=== PATIENT | female | born 1935 | race Two or more races ===

== ENCOUNTER 2019-08-12 01:53 | Inpatient (IN) | payer MEDICAID ==
[~2019-08-12] VITALS: Ht 157.5 cm; Wt 67.6 kg
[2019-08-12] MEDS ORDERED: IV NS 0.9% 1,000 ML BAG IV ONE ×2 (02:00→02:30)
--- NOTE | 2019-08-12 02:10 | NUR ---
[id number] FROM [facility] FOR ALOC SINCE 129, GIVEN GLUCAGON D10, 200CC NS SENIOR PROGRAMMER. PT NON-VERBAL, VENT DEPENDENT, TRACH IN PLACE, GT AND F/C IN PLACE. W/ A 24G IV ON R HAND WHICH IS INFILTRATED. PT WAS PLACED ON A MONITOR ,
[2019-08-12 02:34] LABS: BASOPHILS % (AUTO) 0.2 % (0.0-2.0); HEMATOCRIT 26 % (33-45); HEMOGLOBIN 8.6 g/dL (11.5-14.8); LYMPHOCYTES # (AUTO) 0.6 /CMM (0.8-4.8); LYMPHOCYTES % (AUTO) 6.3 % (20.0-44.0); MEAN CORPUSCULAR HGB CONC 33 g/dl (31.0-36.0); MEAN CORPUSCULAR VOLUME 89 fL (82-100); MONOCYTES # (AUTO) 0.6 /CMM (0.1-1.30); MONOCYTES % (AUTO) 6.3 % (2.0-12.0); NEUTROPHILS # (AUTO) 8.8 /CMM (1.8-8.9); NEUTROPHILS % (AUTO) 87.2 % (43.0-81.0); PLATELET COUNT (AUTO) 430 /CMM (150-450); RED BLOOD CELL COUNT(AUTO) 2.94 MIL/uL (4.0-5.2)
[2019-08-12 02:45] LABS: CALCIUM, SERUM 8.3 mg/dL (8.5-10.1); CREATININE 0.8 mg/dL (0.6-1.3); POTASSIUM 3.6 mmol/L (3.5-5.1)
[2019-08-12 02:51] LABS: BILIRUBIN,DIRECT 0.1 mg/dL (0.0-0.2); BILIRUBIN,TOTAL 0.2 mg/dL (0.2-1.0); TOTAL PROTEIN, SERUM 4.4 g/dL (6.4-8.2)
[2019-08-12 02:59] LABS: ALBUMIN 1.2 g/dL (3.4-5.0)
[2019-08-12 03:28] LABS: APPEARANCE,URINE SL CLOUDY (CLEAR); BILIRUBIN,URINE NEGATIVE (NEGATIVE); BLOOD, URINE SMALL Ery/uL (NEGATIVE); COLOR,URINE YELLOW (YELLOW); KETONES,URINE NEGATIVE (NEGATIVE); LEUKOCYTE ESTERASE ,URINE SMALL (NEGATIVE); NITRITE, URINE NEGATIVE (NEGATIVE); PROTEIN,URINE NEGATIVE (NEGATIVE); UGLUCOSE NEGATIVE (NEGATIVE); UROBILINOGEN,URINE 0.2 EU/dL (0.2)
[2019-08-12 03:40] LABS: BACTERIA,URINE None seen /HPF (None Seen); SQUAMOUS EPITHELIAL CELL,UR Few /HPF (None Seen)
[2019-08-12] MEDS ORDERED: IV 1/2NS 1000 ML 1,000 ML IV PRN (03:48)
--- NOTE | 2019-08-12 03:59 | NUR ---
BP: 117/58 PT HAS RECEIVED 2100ML OF NS SO FAR. MADE AWARE. PER MD TO HOLD ON TO THE THIRD BAG OF 1 LIT NS AND MONITOR PT CLOSELY.
[2019-08-12] MEDS ORDERED: HYDROCODONE/APAP 5/325MG 1 EACH TABLET PO PRN (04:00)
[2019-08-12] MEDS ORDERED: ZOLPIDEM TARTRATE 5 MG TABLET PO PRN (04:00)
[2019-08-12] MEDS ORDERED: MAGNESIUM HYDROXIDE 30 ML UDC PO PRN (04:00)
[2019-08-12] MEDS ORDERED: ACETAMINOPHEN 325 MG TABLET PO PRN (04:00)
[2019-08-12] MEDS ORDERED: ONDANSETRON HCL/PF 4 MG/2 ML VIAL IVP PRN (04:00)
[2019-08-12] MEDS ORDERED: MAG HYDROX/AL HYDROX/SIMETH 30 ML UDC PO PRN (04:00)
[2019-08-12] MEDS ORDERED: Z GUARD REMEDY 2 OZ OINT TP PRN (04:00)
--- NOTE | 2019-08-12 04:06 | NUR ---
pt will go to room 101
[2019-08-12] MEDS ORDERED: PRED5TAB48 PO (04:52)
[2019-08-12] MEDS ORDERED: CHOL200026 PO (04:52)
[2019-08-12] MEDS ORDERED: MODA100T14 PO (04:52)
[2019-08-12] MEDS ORDERED: INSU100V7 SQ (04:52)
[2019-08-12] MEDS ORDERED: ATOR80TA PO (04:52)
[2019-08-12] MEDS ORDERED: FERR325T23 PO (04:52)
[2019-08-12] MEDS ORDERED: LISI40TA4 PO (04:52)
[2019-08-12] MEDS ORDERED: SUCR1TAB PO (04:52)
[2019-08-12] MEDS ORDERED: METO50TA16 PO (04:52)
[2019-08-12] MEDS ORDERED: DILT180C66 PO (04:52)
[2019-08-12] MEDS ORDERED: PANT40TA4 PO (04:52)
[2019-08-12] MEDS ORDERED: MULT1TAB73 PO (04:52)
--- NOTE | 2019-08-12 04:59 | NUR ---
report given to harriet on first floor
--- NOTE | 2019-08-12 05:26 | NUR ---
pt was cleaned and dried.
[2019-08-12 05:30] VITALS: BP 152/71
--- NOTE | 2019-08-12 05:30 | NUR ---
CLUB ROOM ATTENDANT NOTE PATIENT TRANSFERRED FROM ER IN [facility]. PATIENT OBTUNDED AND NON VERBAL. PATIENT DOES NOT OPEN HER EYES. PATIENT TRANSFERRED TO VENT SUCCESSFULLY TOELRATING VENT SETTINGS. BREATHING EVEN AND UNLABORED. EQUAL CHEST RISE AND FALL. NO S/S OF RESP DISTRESS. PATIENT PLACED ON TELE MONITOR HR NOTED TO BE CONTROLLED AFIB HR IN THE 80'S. PATIENT'S EXTREMITIES SEVERELY EDEMATOUS/ PITTING +4 WITH WEEPING IN THE ARMS. IV IN RFA 20 G PATENT, BUT NO VENOUS RETURN AND 20G IN L HAND PATENT WITH NO VENOUS RETURN. NO S/S OF INFILTRATION OR INFECTION. SKIN CHECK GIVEN. INSTRUCTIONS WADER BOOT TOP ASSEMBLER LIGHT USE GIVEN, CALL LIGHT WITHIN REACH. WOUND CONSULT PLACED FOR WOUNDS. CALLED [facility] TO CONFIRM CODE STATUS. PATIENT IS FULL CODE AND HAS NO ADVACNED DIRECTIVES. SIDE RAILS UP X 2 BED IN SEMI FOWLERS. RN WILL CONTINUE TO MONITOR. Addendum: 08/12/19 at 0652 by JOE GONZALEZ RN PATIENT HAS WERNER CATH DRAINING TO GRAVITY WITH STRAW/ LIGHT YELLOW URINE AND MINOR WHITE SEDIMENT NOTED
--- NOTE | 2019-08-12 05:30 | NUR ---
PT TRANSFERRED TO [facility] FROM ED, PT STABLE, VENT PLUG IN RED OUTLET, AMBU BAG AT BEDSIDE, NO SOB NOTED Addendum: 08/12/19 at 0551 by RUSTY GAXIOLA RT Amended: Links added.
--- NOTE | 2019-08-12 05:40 | NUR ---
pt was transferred to 101 under acls
[2019-08-12] MEDS: PANTOPRAZOLE 40 MG TABLET.DR PO SCH (07:30)
--- NOTE | 2019-08-12 07:40 | NUR ---
ELEMENTARY SPECIAL EDUCATION TEACHER NOTE RECEIVED PATIENT IN BED , OBTUNDED ,NOT RESPONSE TO VERBAL COMMAND BUT RESPOCE TO TACTILY STIMULI. WITH TRACH TO VENT SETTING ORDERED, AMBU BAG AT HOB AT ALL TIME, ON TELE MONITOR SR HR 90 WITH PAC , WITH WERNER CAT TO GRAVITY WITH YELLOW COLOR URINE ON NPO ASCORDERED ON IVF ORDERED HL ON LTFA INTACT WITH EDEMA .PLCED ON PILLOW ,
--- NOTE | 2019-08-12 07:59 | NUR ---
DR MORGAN GAS PLANT OPERATOR AT BEDSIDE AWARE THAT TROP NUMBER ONE 0.130 , ON IVF ORDERED AWARE THAT BOTH UPPER AND LOWER EXTREMITIES WITH EDEMA, AWARE THAT PROCALCITONIN 1.83, WILL MONITOR BED IN LOWEST AND LOCKED POSITION , CALL LIGHT WITHIN REACH , PLAN OR CARE DISCUSSED WITH PATIENT
[2019-08-12 08:00] VITALS: BP 169/82
--- NOTE | 2019-08-12 08:29 | NUR ---
TECHNICAL INFORMATION SPECIALIST NOTE 2DECHO DONE ORDERED, WILL MONITOR
[2019-08-12] MEDS: ASPIRIN 81 MG TAB.CHEW PO SCH (10:21)
--- NOTE | 2019-08-12 10:28 | NUR ---
PROJECT MANAGER RETAIL NOTE STOOL FOR C DIF COLLECTED PER HOSPITAL PROTOCOL
[2019-08-12 12:00] VITALS: BP 139/74
[2019-08-12] MEDS ORDERED: DEXTROSE 50%-WATER 50 ML DISP.SYRIN IVP STA ×2 (13:17→14:12)
[2019-08-12] MEDS ORDERED: DEXTROSE 50%-WATER 50 ML DISP.SYRIN IV PRN (13:30)
[2019-08-12] MEDS ORDERED: INSULIN REGULAR, HUMAN 100 UNIT/ML 3 ML VIAL SQ PRN (13:30)
--- NOTE | 2019-08-12 13:30 | NUR ---
PROSTHETIC DENTIST NOTE CHECKED BLOOD SUGAR RESULT BELOW 10 HENNY WEST GLOBAL DIRECTOR AIR AND CLIMATE CHANGE NOTIFIED WITH ORDER TO GIVE D50% IV AND RANDOM GLUCOSE STAT, ORDER CARRIED OUT
[2019-08-12] MEDS: GLUCERNA 1.2 1,000 ML BOTTLE NG PRN (13:49)
--- NOTE | 2019-08-12 13:57 | NUR ---
EMERGENCY MEDICAL TECHNICIAN NOTE REPORTED TO HENNY WEST DNP THAT BOTH ARMS AND LEGS SWELLING OK TO PLACE MID LINE ORDER CARRIED OUT
--- NOTE | 2019-08-12 14:20 | NUR ---
OSWALDO WEST NOTE BLOOD SUGAR CHECKED 19 MG\DL HENNY WEST CHAIR SPRING ASSEMBLER NOTIFIED STATED CONT D10% INFUSING AND START G TUBE FEEDING , ORDER CARRIED OUT Addendum: 08/12/19 at 1656 by MARY LAWRENCE RN ANOTHER D50% ORDERED WILL BE GIVEN ORDERED
[2019-08-12] MEDS: CHOLECALCIFEROL 1,000 UNIT TABLET (VIT D3) PO SCH (14:50)
[2019-08-12] MEDS: Sodium Chloride 77 MEQ in IV 10% DEXTROSE 1,000 ML IV PRN (14:50)
--- NOTE | 2019-08-12 15:07 | NUR ---
RED CAP NOTE DR CHAIREZ NOTIFIED ABOUT BLOOD CLOT ON LT LEG WITH ORDER CT HEAD STAT ORDERED CARRIED OUT DR CHAIREZ AWARE THAT HR [address] ST
--- NOTE | 2019-08-12 15:10 | NUR ---
TRANSPORTATION WORKER NOTE BLOOD SUGAR 81 MG\ DL WILL CONT TO INFUSE D10% IV ORDERED,PER LAB BLOOD SUGAR 37 MG DL ,HENNY WEST MILL HAND AWARE WITH CONT G TUBE FEEDING ANG AND IVF WITH D10% INFUSION
--- NOTE | 2019-08-12 15:45 | NUR ---
PASTORAL ASSISTANT NOTE SPOKE WITH ALYSSA NOTIFIED THAT HR ON TELE MONITOR ST WITH PAC 145 -156 OK TO CONT LOPRESSOR ORDERED VIA G TUBE , WILL F\U
--- NOTE | 2019-08-12 15:45 | NUR ---
director telecommunications note \ taken to ct head as ordered
[2019-08-12 16:00] VITALS: BP_SYST 143; BP_SYST 147; BP_DIAS 83; BP_DIAS 97
[2019-08-12] MEDS: predniSONE 5 MG TABLET PO SCH (16:13)
[2019-08-12] MEDS: SUCRALFATE 1 G TABLET PO SCH ×2 (16:13→21:11)
[2019-08-12] MEDS: METOPROLOL TARTRATE 50 MG TABLET PO SCH (16:14)
--- NOTE | 2019-08-12 16:27 | NUR ---
RN SURGICAL PCU NOTE DR GIVENS NOTIFIED CT HEAD WITH ORDER VASCULAR CONSULT WITH DR CARPIO CALLED OFFICE SPOKE WITH PETER CARVER F\U
--- NOTE | 2019-08-12 16:56 | NUR ---
BUCKLE STRAP PUNCHER NOTE DR SLATER VASCULAR CALLED BACK STATED WILL COME SOON TO CHECK IT OUT
--- NOTE | 2019-08-12 17:00 | NUR ---
COPYRIGHT MANAGER NOTE MID LINE INSERTED ORDERED KEEP CLEAN DRY ,WILL MONITOR
[2019-08-12] MEDS: BLOOD SUGAR DIAGNOSTIC 1 EACH STRIP IN SCH ×2 (17:38→21:47)
[2019-08-12] MEDS: DILTIAZEM HCL 30 MG TABLET PO SCH (17:42)
--- NOTE | 2019-08-12 18:13 | NUR ---
HR INTERN NOTE PER DR SLATER VASCULAR CONSENT FOR PLACEMENT IVC FILTER OBTAINED ,SON SIGNED
--- NOTE | 2019-08-12 18:47 | NUR ---
SALES PROJECT ENGINEER NOTE KUV DONE ORDERED AWAITING FOR RESULT
--- NOTE | 2019-08-12 19:25 | NUR ---
TELE/RN NOTES PATIENT IN BED, AWAKE OPEN EYES, NON-VERBAL. TRACH TO VENT WITH PRESCRIBED SETTINGS, IN NO ACUTE DISTRESS, BREATHING EVEN AND UNLABORED. NO SOB NOTED, TRACH INTACT, PATENT, IN MIDLINE, AMBU BAG AT BED SIDE. NO S/S OF PAIN, NO FACIAL GRIMACING NOTED, ON TELE MONITORING WITH SINUS RHYTHM. WERNER CATH IN PLACE, PATENT, DRAINING WELL WITH CLEAR YELLOW URINE. G-TUBE PATENT CONNECTED TO FEEDING ORDERED. CLEAN AND DRY. SAFETY MAINTAINED, BED AT THE LOWEST LOCKED POSITION, IV SITES WITH NO S/S OF INFECTION, INFILTRATION, RUNNING WITH FLUIDS ORDERED. CALL LIGHT WITHIN REACH. FAMILY AT BED SIDE. WILL CONTINUE TO MONITOR PER PLAN OF CARE.
[2019-08-12 20:00] VITALS: BP 135/72
--- NOTE | 2019-08-12 20:04 | NUR ---
CALLED DR. HAMMOND TO RELAY KUB RESULTS, WAITING FOR CALL BACK
--- NOTE | 2019-08-12 21:15 | NUR ---
PT RCVD TRACH'D ON MECHANICAL VENT WITH CHARTED SETTINGS. SX DONE. PT TRACH IS PATENT AND SECURE. VENT ALARMS APPEAR TO BE FUNCTIONING PROPERLY. VENT PLUGGED INTO RED OUTLET. AMBU BAG AT BEDSIDE. NO SOB NOTED.
--- NOTE | 2019-08-12 21:17 | NUR ---
PT RCVD CESAR'D ON MECHANICAL VENT WITH CHARTED SETTINGS. SX DONE. PT TRACH IS PATENT AND SECURE. VENT ALARMS APPEAR TO BE FUNCTIONING PROPERLY. VENT PLUGGED INTO RED OUTLET. AMBU BAG AT BEDSIDE. NO SOB NOTED. Addendum: 08/12/19 at 2117 by DILLNO SUAZO RT Amended: Links added.
[2019-08-13] VITALS: BP 142/78
[2019-08-13] MEDS: DILTIAZEM HCL 30 MG TABLET PO SCH ×4 (00:30→17:19)
[2019-08-13 03:35] LABS: BASOPHILS % (AUTO) 0.4 % (0.0-2.0); EOSINOPHILS % (AUTO) 0.2 % (0.0-6.0); HEMATOCRIT 29 % (33-45); HEMOGLOBIN 9.5 g/dL (11.5-14.8); LYMPHOCYTES % (AUTO) 10.2 % (20.0-44.0); MEAN CORPUSCULAR HGB CONC 33 g/dl (31.0-36.0); MEAN CORPUSCULAR VOLUME 90 fL (82-100); MONOCYTES # (AUTO) 0.8 /CMM (0.1-1.30); MONOCYTES % (AUTO) 8.6 % (2.0-12.0); NEUTROPHILS # (AUTO) 7.6 /CMM (1.8-8.9); NEUTROPHILS % (AUTO) 80.6 % (43.0-81.0); PLATELET COUNT (AUTO) 456 /CMM (150-450); RED BLOOD CELL COUNT(AUTO) 3.18 MIL/uL (4.0-5.2); WHITE BLOOD COUNT (AUTO) 9.5 K/uL (4.3-11.0)
[2019-08-13 03:48] LABS: CREATININE 0.8 mg/dL (0.6-1.3); MAGNESIUM 1.7 mg/dL (1.8-2.4); PHOSPHORUS 2.9 mg/dL (2.5-4.9); POTASSIUM 3.8 mmol/L (3.5-5.1)
[2019-08-13 04:00] VITALS: BP 152/76
[2019-08-13] MEDS ORDERED: DEXTROSE 50%-WATER 50 ML DISP.SYRIN IV PRN (04:30)
[2019-08-13] MEDS: Sodium Chloride 77 MEQ in IV 10% DEXTROSE 1,000 ML IV PRN ×2 (04:47→21:50)
[2019-08-13] MEDS: INSULIN REGULAR, HUMAN 100 UNIT/ML 3 ML VIAL SQ PRN ×2 (06:01→11:04)
[2019-08-13] MEDS: BLOOD SUGAR DIAGNOSTIC 1 EACH STRIP IN SCH ×3 (06:12→17:29)
--- NOTE | 2019-08-13 06:54 | NUR ---
TELE/RN EXIT NOTES PATIENT IN BED, AWAKE OPEN EYES, NON-VERBAL. TRACH TO VENT WITH PRESCRIBED SETTINGS, IN NO ACUTE DISTRESS, BREATHING EVEN AND UNLABORED. NO SOB NOTED, TRACH INTACT, PATENT, IN MIDLINE, AMBU BAG AT BED SIDE. NO S/S OF PAIN, NO FACIAL GRIMACING NOTED, ON TELE MONITORING WITH SINUS RHYTHM/SINUS TACHY. WERNER CATH IN PLACE, PATENT, DRAINING WELL WITH CLEAR YELLOW URINE WITH OUTPUT 500 IN THIS SHIFT. PATIENT NPO OF THE IVC PROCEDURE TODAY. CLEAN AND DRY. SAFETY MAINTAINED, BED AT THE LOWEST LOCKED POSITION, IV SITES WITH NO S/S OF INFECTION, INFILTRATION, RUNNING WITH FLUIDS ORDERED. ALL DUE MEDS GIVEN ORDERED, TOLERATED WELL. PENDING WOUND CONSULT. CALL LIGHT WITHIN REACH. WILL ENDORSE TO AM SHIFT NURSE FOR JULIANA.
--- NOTE | 2019-08-13 07:20 | NUR ---
TELE/RN OPENING NOTES RECEIVED PATIENT IN BED RESTING COMFORTABLY. PATIENT ABLE TO RESPOND TO TACTILE STIMULI. NO PAIN OR ACUTE DISTRESS AT THIS TIME. RESPIRATION EVEN AND UNLABORED. SKIN IS DRY WARM TO TOUCH. PATIENT ABLE TO TOLERATED CURRENT VENT SETTINGS WELL. AMBU BAG AT BED SIDE. TELE MONITORING WITH SINUS RHYTHM. NOTED WITH WERNER CATH WELL AND IN PLACE, PATENT, DRAINING WELL WITH CLEAR YELLOW URINE. G-TUBE INTACT AND PATENT. IV SITES INTACT AND PATENT WITH NO S/S OF INFECTION, INFILTRATION, RUNNING WITH FLUIDS ORDERED. ALL NEEDS ANTICIPATED. CALL LIGHT WITHIN REACHED. BED LOCKED AND IN LOWEST POSITION. SAFETY MAINTAINED. WILL CONTINUE TO MONITOR CLOSELY.
[2019-08-13] MEDS: PANTOPRAZOLE 40 MG TABLET.DR PO SCH (07:32)
[2019-08-13 08:00] VITALS: BP 132/82
[2019-08-13] MEDS: MULTIVIT W/MINERALS 1 TAB TABLET PO SCH (08:38)
[2019-08-13] MEDS: ASPIRIN 81 MG TAB.CHEW PO SCH (08:38)
[2019-08-13] MEDS: METOPROLOL TARTRATE 50 MG TABLET PO SCH ×2 (08:38→17:19)
[2019-08-13] MEDS: SUCRALFATE 1 G TABLET PO SCH ×4 (08:38→21:43)
[2019-08-13] MEDS: CHOLECALCIFEROL 1,000 UNIT TABLET (VIT D3) PO SCH (08:39)
[2019-08-13] MEDS: FERROUS SULFATE (325 MG) 325 MG/TAB TABLET PO SCH (08:39)
[2019-08-13] MEDS: MODAFINIL 100 MG TABLET PO SCH (08:39)
[2019-08-13] MEDS: predniSONE 5 MG TABLET PO SCH ×2 (08:41→17:14)
--- NOTE | 2019-08-13 10:36 | NUR ---
WOUND CARE CONSULT: PT PRESENTS WITH NECROTIC WOUND TO RT UPPER ARM, DRY ESCHAR TO ABDOMEN, SACRAL SCARRING WITH LARGE SKIN TAG TO BUTTOCKS, DRY LESION TO LEFT SIDE OF FACE/CHEEK AND DISCOLORATION/SCARRING TO RT WITH DISCOLORATION vs POSSIBLE DRY WOUND TO LEFT LOWER LEG, PRESENT ON ADMISSION. RECOMMEND DPM CONSULT FOR LOWER EXTREMITIES AND SURGICAL CONSULT FOR RT ARM AND ABDOMEN. DR FOWLER NOTIFIED OF DPM CONSULT REQUEST AND DR ELSA JACKSON NOTIFIED OF SURGICAL CONSULT REQUEST. PT ON FIRST STEP [facility] MATTRESS. ALL SKIN PROTECTION AND WOUND CARE RECOMMENDATIONS DISCUSSED WITH NURSING STAFF. DEFER TO DPM FOR LOWER EXTREMITIES. WILL SEE PRN. CURRENT BEATRIZ SCORE IS 9. Addendum: 08/13/19 at 1041 by NEERAJ ALVARADO WNDNU Amended: Links added.
[2019-08-13 12:00] VITALS: BP 127/77
[2019-08-13] MEDS: Magnesium 1GM/D5W 100ML PREMIX 100 ML IV SCH ×2 (12:43→14:10)
--- NOTE | 2019-08-13 15:15 | NUR ---
TELE/RN NOTES NURSES FROM SURGERY CAME TO THE UNIT TO SENIOR GROUP MANAGER THE PATIENT. PATIENT LEFT THE UNIT IN STABLE CONDITION. AWAITING FOR THE PATIENTS RETURN FROM SURGERY.
[2019-08-13] MEDS: ACETYLCYSTEINE 10% SOLN 400 MG/4 ML VIAL NEB SCH ×2 (15:30→23:30)
[2019-08-13] MEDS ORDERED: LIDOCAINE HCL/PF 1% 30 ML SDV ONE (15:44)
[2019-08-13] MEDS ORDERED: IOHEXOL 240MG/ML 50 ML IV ONE (15:54)
[2019-08-13 16:00] VITALS: BP 145/84
--- NOTE | 2019-08-13 16:30 | NUR ---
TELE/RN NOTES PATIENT CAME BACK FROM SURGERY ACCOMPANIED BY SURGERY NURSE WITH ORDERS TO RESUME ALL MEDS/ORDERS, KEEP LEFT FOOT WARM AT ALL TIMES AND TO PUT BILATERAL HEEL PROTECTORS. ALL ORDERS NOTED AND CARRIED OUT. WILL CONTINUE TO MONITOR CLOSELY.
--- NOTE | 2019-08-13 18:45 | NUR ---
TELE/RN CLOSING NOTES PATIENT CONTINUES TO REMAIN IN STABLE CONDITION THROUGHOUT THE SHIFT. PROVIDED COMFORT AND SAFETY. CONTINUES ON TELE MONITORING WITH SINUS RHYTHM. PATIENT WAS ABLE TO TOLERATE SURGERY WELL. IVC FILTER WAS PLACED BY DR. HAMMOND. INCISION ON R GROIN WITH DRESSING, INTACT AND IN PLACE. NOTED WITH WERNER CATH WELL AND IN PLACE, PATENT, DRAINING WELL WITH CLEAR YELLOW URINE. G-TUBE INTACT AND PATENT. IV SITES INTACT AND PATENT WITH NO S/S OF INFECTION, INFILTRATION, RUNNING WITH FLUIDS ORDERED. ALL NEEDS ANTICIPATED. CALL LIGHT WITHIN REACHED. BED LOCKED AND IN LOWEST POSITION. SAFETY MAINTAINED. WILL CONTINUE TO MONITOR CLOSELY. ENDORSED TO PM NURSE FOR JULIANA.
--- NOTE | 2019-08-13 19:25 | NUR ---
TELE/RN NOTES PATIENT IN BED, RESTING COMFORTABLY, EYES CLOSE, RESPOND TO STIMULI, NON-VERBAL, TRACH TO VENT WITH PRESCRIBED SETTINGS, IN NO ACUTE DISTRESS, BREATHING EVEN AND UNLABORED. NO SOB NOTED, TRACH INTACT, PATENT, IN MIDLINE, AMBU BAG AT BED SIDE. NO S/S OF PAIN, NO FACIAL GRIMACING NOTED, ON TELE MONITORING WITH SINUS RHYTHM. WERNER CATH IN PLACE, PATENT, DRAINING WELL WITH CLEAR YELLOW URINE. G-TUBE PATENT CONNECTED TO FEEDING ORDERED. HOB ELEVATED. CLEAN AND DRY. PATIENT S/P PROCEDURE IVC PLACEMENT, LEFT LOWER EXTREMITY KEPT WARM, BILATERAL HEEL PROTECTOR IN PLACE. SAFETY MAINTAINED, BED AT THE LOWEST LOCKED POSITION, IV SITES WITH NO S/S OF INFECTION, INFILTRATION, RUNNING WITH FLUIDS ORDERED. CALL LIGHT WITHIN REACH. FAMILY AT BED SIDE. WILL CONTINUE TO MONITOR PER PLAN OF CARE.
--- NOTE | 2019-08-13 19:43 | NUR ---
RT NOTE PT RECEIVED TRACHED ON MECHANICAL VENTILATION. AMBU BAG/BACK UP TRACH @ BEDSIDE. SX DONE, TRACH SECURED AND PATENT. ALARMS ON AND AUDIBLE. NO SOB NOTED. CONT. PULSE OX CONNECTED. WILL CONTINUE TO MONITOR T/O SHIFT. Addendum: 08/13/19 at 1945 by DEB LOPEZ RT Amended: Links added.
[2019-08-13 20:00] VITALS: BP 126/64
[2019-08-14] VITALS: BP 142/80
[2019-08-14] MEDS: BLOOD SUGAR DIAGNOSTIC 1 EACH STRIP IN SCH ×4 (00:28→16:59)
[2019-08-14] MEDS: DILTIAZEM HCL 30 MG TABLET PO SCH ×4 (00:45→16:58)
[2019-08-14] MEDS: INSULIN REGULAR, HUMAN 100 UNIT/ML 3 ML VIAL SQ PRN ×4 (00:52→17:00)
[2019-08-14 04:00] VITALS: BP 150/91
--- NOTE | 2019-08-14 06:42 | NUR ---
TELE/RN EXIT NOTES PATIENT REMAINED IN BED, AWAKE OPEN EYES, NON-VERBAL. TRACH TO VENT WITH PRESCRIBED SETTINGS, IN NO ACUTE DISTRESS, BREATHING EVEN AND UNLABORED. NO SOB NOTED, TRACH INTACT, PATENT, IN MIDLINE, AMBU BAG AT BED SIDE. NO S/S OF PAIN, NO FACIAL GRIMACING NOTED, ON TELE MONITORING WITH SINUS RHYTHM/SINUS TACHY. WERNER CATH IN PLACE, PATENT, DRAINING WELL WITH CLEAR YELLOW URINE WITH OUTPUT 1050 IN THIS SHIFT. CLEAN AND DRY. SAFETY MAINTAINED, BED AT THE LOWEST LOCKED POSITION, IV SITES WITH NO S/S OF INFECTION, INFILTRATION, RUNNING WITH FLUIDS ORDERED. ALL DUE MEDS GIVEN ORDERED, TREATMENTS RENDERED. TOLERATED WELL. . CALL LIGHT WITHIN REACH. WILL ENDORSE TO AM SHIFT NURSE FOR JULIANA.
[2019-08-14 06:47] LABS: BASOPHILS % (AUTO) 0.2 % (0.0-2.0); HEMATOCRIT 30 % (33-45); HEMOGLOBIN 10.1 g/dL (11.5-14.8); LYMPHOCYTES # (AUTO) 1.1 /CMM (0.8-4.8); LYMPHOCYTES % (AUTO) 12.3 % (20.0-44.0); MEAN CORPUSCULAR HGB CONC 33 g/dl (31.0-36.0); MEAN CORPUSCULAR VOLUME 89 fL (82-100); MONOCYTES # (AUTO) 0.8 /CMM (0.1-1.30); MONOCYTES % (AUTO) 8.8 % (2.0-12.0); NEUTROPHILS # (AUTO) 7.3 /CMM (1.8-8.9); NEUTROPHILS % (AUTO) 78.7 % (43.0-81.0); PLATELET COUNT (AUTO) 518 /CMM (150-450); RED BLOOD CELL COUNT(AUTO) 3.43 MIL/uL (4.0-5.2); WHITE BLOOD COUNT (AUTO) 9.3 K/uL (4.3-11.0)
[2019-08-14 07:15] LABS: CALCIUM, SERUM 8.1 mg/dL (8.5-10.1); CREATININE 0.7 mg/dL (0.6-1.3); POTASSIUM 3.8 mmol/L (3.5-5.1)
[2019-08-14] MEDS: ACETYLCYSTEINE 10% SOLN 400 MG/4 ML VIAL NEB SCH ×3 (07:23→23:12)
--- NOTE | 2019-08-14 07:30 | NUR ---
TELE/RN OPENING NOTES RECEIVED PATIENT IN BED, RESTING COMFORTABLY. PATIENT ABLE TO RESPOND TO TACTILE STIMULI. NO FACIAL GRIMACING OR ACUTE DISTRESS AT THIS TIME. RESPIRATION EVEN AND UNLABORED. SKIN IS DRY WARM TO TOUCH. PATIENT ABLE TO TOLERATE VENT SETTING WELL. AMBU BAG AT BED SIDE. CONTINUES ON TELE MONITORING WITH SINUS RHYTHM. WERNER CATH IN PLACE, PATENT, DRAINING WELL WITH CLEAR YELLOW URINE. G-TUBE PATENT CONNECTED TO FEEDING ORDERED. HOB ELEVATED AT ALL TIMES. CLEAN AND DRY. PATIENT S/P PROCEDURE IVC PLACEMENT, LEFT LOWER EXTREMITY KEPT WARM, BILATERAL HEEL PROTECTOR IN PLACE. ALL NEEDS ANTICIPATED. CALL LIGHT WITHIN REACHED. BED LOCKED AND IN LOWEST POSITION. SAFETY MAINTAINED. WILL CONTINUE TO MONITOR CLOSELY.
[2019-08-14] MEDS: PANTOPRAZOLE 40 MG TABLET.DR PO SCH (07:46)
[2019-08-14 08:00] VITALS: BP_SYST 100; BP_SYST 71; BP_DIAS 60; BP_DIAS 76
[2019-08-14] MEDS: METOPROLOL TARTRATE 50 MG TABLET PO SCH ×2 (09:00→16:58)
[2019-08-14] MEDS: MODAFINIL 100 MG TABLET PO SCH (09:01)
[2019-08-14] MEDS: CHOLECALCIFEROL 1,000 UNIT TABLET (VIT D3) PO SCH (09:01)
[2019-08-14] MEDS: FERROUS SULFATE (325 MG) 325 MG/TAB TABLET PO SCH (09:01)
[2019-08-14] MEDS: predniSONE 5 MG TABLET PO SCH ×2 (09:01→16:58)
[2019-08-14] MEDS: SUCRALFATE 1 G TABLET PO SCH ×4 (09:01→21:16)
[2019-08-14] MEDS: MULTIVIT W/MINERALS 1 TAB TABLET PO SCH (09:01)
[2019-08-14] MEDS: ASPIRIN 81 MG TAB.CHEW PO SCH (09:01)
[2019-08-14] MEDS: SILVER SULFADIAZINE CREAM 25 GM TUBE TP SCH (09:10)
[2019-08-14] MEDS: Sodium Chloride 77 MEQ in IV 10% DEXTROSE 1,000 ML IV PRN (10:20)
--- NOTE | 2019-08-14 11:57 | NUR ---
RT NOTE RECEIVED PT MECHANICALLY VENTILATED VIA CUFFED TRACHEOSTOMY TUBE. CUFF INFLATED. TRACH TUBE MIDLINE AND SECURE. VENTILATOR SETTINGS PRESCRIBED. ALARMS SET PER PROTOCOL AND AUDIBLE. VENT PLUGGED IN TO RED OUTLET. AMBU BAG AT BED SIDE. NO DISTRESS NOTED. Addendum: 08/14/19 at 1159 by VICENTE HOFFMAN RT Amended: Links added.
[2019-08-14 12:00] VITALS: BP 132/78
[2019-08-14] MEDS: GLUCERNA 1.2 1,000 ML BOTTLE NG PRN (14:10)
[2019-08-14] MEDS ORDERED: DOSE PER PHARMACY MICAFUNGIN 1 EA XX PRN (14:30)
[2019-08-14] MEDS: FLUCONAZOLE IN NS,PREMIX 200 MG in PREMIX 1 EA IV SCH ×2 (15:55)
[2019-08-14 16:00] VITALS: BP_SYST 142; BP_SYST 155; BP_DIAS 82; BP_DIAS 92
[2019-08-14] MEDS: IV D5/ 0.9% NACL 1,000 ML IV PRN (17:51)
--- NOTE | 2019-08-14 19:02 | NUR ---
TELE/RN CLOSING NOTES PATIENT CONTINUES TO REMAIN IN STABLE CONDITION THROUGHOUT THE SHIFT. PROVIDED COMFORT AND SAFETY. CONTINUES ON TELE MONITORING WITH SINUS RHYTHM. WERNER CATH IN PLACE, PATENT, DRAINING WELL WITH CLEAR YELLOW URINE. G-TUBE PATENT CONNECTED TO FEEDING ORDERED. HOB ELEVATED AT ALL TIMES. CLEAN AND DRY. LEFT LOWER EXTREMITY KEPT WARM, BILATERAL HEEL PROTECTOR IN PLACE. ALL NEEDS ANTICIPATED. CALL LIGHT WITHIN REACHED. BED LOCKED AND IN LOWEST POSITION. SAFETY MAINTAINED. WILL CONTINUE TO MONITOR CLOSELY. ENDORSED TO PM NURSE FOR JULIANA.
[2019-08-14 20:00] VITALS: BP 149/70
[2019-08-14] MEDS: ATORVASTATIN 40 MG TABLET PO SCH (21:40)
[2019-08-15] VITALS: BP 165/83
[2019-08-15] MEDS: BLOOD SUGAR DIAGNOSTIC 1 EACH STRIP IN SCH ×4 (00:22→18:03)
[2019-08-15] MEDS: DILTIAZEM HCL 30 MG TABLET PO SCH ×4 (00:22→17:58)
[2019-08-15 04:00] VITALS: BP 152/75
--- NOTE | 2019-08-15 05:44 | NUR ---
PATIENT RECEIVED ON TRACH TO VENT WITH SETTINGS OF AC 8, 400 VT, 50%, +5. SUCTIONED WITH LAVAGE FOR MINIMAL, THIN, WHITE SECRETIONS. GIVEN MUCOMYST TREATMENT WITH NO ADVERSE REACTIONS. AMBU BAG AT BEDSIDE. VENT AND PULSE OXIMETER ALARMS AUDIBLE AND VISIBLE. VENT PLUGGED INTO RED OUTLET. Addendum: 08/15/19 at 0546 by PATRICK HANEY RT Amended: Links added.
--- NOTE | 2019-08-15 06:35 | NUR ---
CARRIAGE FEEDER NOTES AWAKE & NON VERBAL WITH SAME VENT SETTINGS. NOT IN ANY DISTRESS. NO SOB NOTED. NO S/SX OF ANY PAIN OR DISCOMFORT AT THIS TIME. WITH IVF & GTF INFUSING WELL. WITH F/C DRAINING YELLOWISH OUTPUT MODERATE IN AMOUNT. MONITORED ACCORDINGLY. AM CARE DONE. CALL LIGHT WITHIN REACH. BED IN LOWEST POSITION. SR UP X 3 WITH BED ALARM ON FOR SAFETY. WILL ENDORSE TO NEXT SHIFT. Addendum: 08/15/19 at 0638 by KENDRICK JORDAN RN ON TELE SR @ 96
[2019-08-15 07:04] LABS: EOSINOPHILS % (AUTO) 0.1 % (0.0-6.0); HEMATOCRIT 29 % (33-45); HEMOGLOBIN 9.6 g/dL (11.5-14.8); LYMPHOCYTES # (AUTO) 1.2 /CMM (0.8-4.8); LYMPHOCYTES % (AUTO) 12.2 % (20.0-44.0); MEAN CORPUSCULAR HGB CONC 33 g/dl (31.0-36.0); MEAN CORPUSCULAR VOLUME 88 fL (82-100); MONOCYTES # (AUTO) 0.9 /CMM (0.1-1.30); MONOCYTES % (AUTO) 8.9 % (2.0-12.0); NEUTROPHILS # (AUTO) 7.8 /CMM (1.8-8.9); NEUTROPHILS % (AUTO) 78.8 % (43.0-81.0); PLATELET COUNT (AUTO) 476 /CMM (150-450); WHITE BLOOD COUNT (AUTO) 9.9 K/uL (4.3-11.0)
--- NOTE | 2019-08-15 07:17 | NUR ---
RN OPENING NOTES RECEIVED PATIENT RESTING IN BED COMFORTABLY. SHE IS AOX1, NON-VERBAL BUT OPENS EYES, AND IS BED BOUND. SHE HAS A SHILEY 6 TRACH AND IS ON MECHANICAL VENT, TOLERATING SETTINGS WELL, NO S/SX OF RESP DISTRESS OR SOB. TELE MONITOR SHOWING SR. PT HAS MULTIPLE WOUNDS THROUGHOUT THE BODY, WILL ADDRESS ACCORDING TO WOUND TREATMENT PLAN. GTUBE IS INTACT, GLUCERNA AT 40 ML/HR. PT HAS R HAND 22G AND GODWIN MIDLINE INFUSING D5 NS AT 75 ML/HR. SAFETY MEASURES HAVE BEEN IMPLEMENTED, CALL LIGHT IS WITHIN REACH, BED IS IN LOWEST AND LOCKED POSITION, SIDE RAILS UP X2, WILL CONTINUE TO MONITOR FOR ANY CHANGES.
[2019-08-15 07:49] LABS: CREATININE 0.6 mg/dL (0.6-1.3); MAGNESIUM 1.7 mg/dL (1.8-2.4); PHOSPHORUS 2.4 mg/dL (2.5-4.9)
[2019-08-15] MEDS: PANTOPRAZOLE 40 MG TABLET.DR PO SCH (07:54)
[2019-08-15 08:00] VITALS: BP_SYST 162; BP_SYST 172; BP_DIAS 86
[2019-08-15] MEDS: ACETYLCYSTEINE 10% SOLN 400 MG/4 ML VIAL NEB SCH ×2 (08:10→15:33)
[2019-08-15] MEDS: CHOLECALCIFEROL 1,000 UNIT TABLET (VIT D3) PO SCH (08:27)
[2019-08-15] MEDS: ASPIRIN 81 MG TAB.CHEW PO SCH (08:27)
[2019-08-15] MEDS: METOPROLOL TARTRATE 50 MG TABLET PO SCH (08:27)
[2019-08-15] MEDS: FERROUS SULFATE (325 MG) 325 MG/TAB TABLET PO SCH (08:27)
[2019-08-15] MEDS: SUCRALFATE 1 G TABLET PO SCH ×4 (08:28→20:52)
[2019-08-15] MEDS: MODAFINIL 100 MG TABLET PO SCH (08:28)
[2019-08-15] MEDS: MULTIVIT W/MINERALS 1 TAB TABLET PO SCH (08:30)
[2019-08-15] MEDS: predniSONE 5 MG TABLET PO SCH ×2 (08:31→16:33)
[2019-08-15] MEDS: IV D5/ 0.9% NACL 1,000 ML IV PRN (08:31)
[2019-08-15] MEDS: SILVER SULFADIAZINE CREAM 25 GM TUBE TP SCH (09:43)
[2019-08-15] MEDS ORDERED: NEUTRA PHOS 1 POWD.PACKET PO ONE (11:00)
[2019-08-15] MEDS: Magnesium 1GM/D5W 100ML PREMIX 100 ML IV SCH ×2 (11:05→12:16)
[2019-08-15] MEDS: INSULIN REGULAR, HUMAN 100 UNIT/ML 3 ML VIAL SQ PRN ×2 (11:56→17:59)
[2019-08-15 12:00] VITALS: BP 169/83
[2019-08-15] MEDS: CARVEDILOL 12.5 MG TABLET PO SCH ×2 (14:55→20:52)
[2019-08-15] MEDS ORDERED: hydrALAZINE HCL IV 20 MG VIAL IV PRN (15:00)
[2019-08-15] MEDS: FLUCONAZOLE IN NS,PREMIX 200 MG in PREMIX 1 EA IV SCH ×2 (15:01)
[2019-08-15 16:00] VITALS: BP 160/75
[2019-08-15] MEDS: GLUCERNA 1.2 1,000 ML BOTTLE NG PRN (16:33)
--- NOTE | 2019-08-15 17:43 | NUR ---
RT PATIENT REMAINED STABLE THROUGHOUT SHIFT. NO SOB NOTED. TRACH REMAINS SECURE AND IN PROPER POSITIONS. VENT SETTINGS AND ALARMS CHECKED + AUDIBLE. MIKEU BAG AT HOB. CONT CURRENT PLAN OF CARE. Addendum: 08/15/19 at 1745 by RAYMUNDO MORELOS RT Amended: Links added.
--- NOTE | 2019-08-15 18:43 | NUR ---
RN CLOSING NOTES PATIENT IS RESTING COMFORTABLY IN BED WITH FAMILY AT BEDSIDE AT THIS TIME. PT SHOWS NO S/SX OF DISTRESS. TOLERATING VENT SETTINGS WELL. HER BP HAS BEEN ELEVATED AND FLUCTUATING THROUGHOUT THE DAY. NO ACUTE CHANGES OCCURRED THROUGHOUT THE SHIFT, VITAL SIGNS ARE STABLE, PT NEEDS HAVE BEEN MET. SAFETY MEASURES HAVE BEEN IMPLEMENTED, CALL LIGHT IS WITHIN REACH, BED IS IN LOWEST AND LOCKED POSITION, SIDE RAILS UP X2, WILL ENDORSE TO NIGHTSHIFT RN FOR CONTINUITY OF CARE.
--- NOTE | 2019-08-15 19:25 | NUR ---
TELE/RN NOTES RECEIVED PT. LYING IN BED. PT. IS OBTUNDED AND OPENS EYES. PT. IS VENT/TRACH DEPENDENT. BREATHING EVEN AND UNLABORED. NO SOB, RESPIRATORY DISTRESS OR S/S OF PAIN NOTED AT THIS TIME. PT. WITH EXTERNAL FUR POINTER PRESENT AND INTACT, CURRENT RHYTHM = SINUS RHYTHM HR 74. PT. WITH LEFT UPPER ARM MIDLINE PRESENT, PATENT AND INTACT ADMINISTERING TO PT. D5NS @ 75 ML/HR. PT. WITH G-TUBE PRESENT, PATENT AND INTACT ADMINISTERING TO PT. GLUCERNA 1.2 @ 40ML/HR. PT. TOLERATING TUBE FEEDING WELL, NO RESIDUAL NOTED AT THIS TIME. PT. WITH WERNER CATHETER PRESENT, PATENT AND INTACT DRAINING YELLOW URINE. BED LOCKED AND IN LOWEST POSITION, SIDE RAILS UP X3, BED ALARM ON, WILL CONTINUE TO MONITOR.
[2019-08-15 20:00] VITALS: BP 138/68
[2019-08-15] MEDS: ATORVASTATIN 40 MG TABLET PO SCH (21:02)
[2019-08-16] VITALS: BP 150/67
[2019-08-16] MEDS: ACETYLCYSTEINE 10% SOLN 400 MG/4 ML VIAL NEB SCH ×3 (00:03→15:14)
[2019-08-16] MEDS: BLOOD SUGAR DIAGNOSTIC 1 EACH STRIP IN SCH ×4 (00:27→17:19)
[2019-08-16] MEDS: DILTIAZEM HCL 30 MG TABLET PO SCH ×2 (00:32→05:37)
[2019-08-16 04:00] VITALS: BP 138/81
--- NOTE | 2019-08-16 05:28 | NUR ---
RT NOTE Pt rec'd trached on [facility] vent on AC mode. No resp distress or sob noted. Trach is patent and secured. Sx'd for thick mod amt of clear secretions. Alarms are set and audible. Vent plugged into red outlet. Ambu bag bedside. will continue to monitor. Addendum: 08/16/19 at 0531 by GAYE TREVIZO RT Amended: Links added.
[2019-08-16] MEDS: IV D5/ 0.9% NACL 1,000 ML IV PRN (06:46)
--- NOTE | 2019-08-16 06:54 | NUR ---
TELE/RN NOTES PT. IS LYING IN BED RESTING. BREATHING EVEN AND UNLABORED. NO SOB, RESPIRATORY DISTRESS OR S/S OF PAIN NOTED AT THIS TIME AND THROUGHOUT SHIFT. PT. WITH EXTERNAL GAGGERMAN PRESENT AND INTACT, CURRENT RHYTHM = SINUS RHYTHM HR 76. PT. WITH LEFT UPPER ARM MIDLINE PRESENT, PATENT AND INTACT ADMINISTERING TO PT. D5NS @ 75 ML/HR. PT. WITH G-TUBE PRESENT, PATENT AND INTACT ADMINISTERING TO PT. GLUCERNA 1.2 @ 40ML/HR. PT. TOLERATING TUBE FEEDING WELL, NO RESIDUAL NOTED AT THIS TIME AND THROUGHOUT SHIFT. PT. WITH WERNER CATHETER PRESENT, PATENT AND INTACT DRAINING YELLOW URINE. ALL PT. NEEDS MET. PT. OFFLOADED, TURNED AND REPOSITIONED Q2H AND NEEDED. BED LOCKED AND IN LOWEST POSITION, SIDE RAILS UP X3, BED ALARM ON, WILL ENDORSE TO DAYSTXFT NURSE FOR CONTINUITY OF CARE.
[2019-08-16 07:03] LABS: BASOPHILS % (AUTO) 0.2 % (0.0-2.0); EOSINOPHILS % (AUTO) 0.2 % (0.0-6.0); HEMATOCRIT 25 % (33-45); HEMOGLOBIN 8.4 g/dL (11.5-14.8); LYMPHOCYTES % (AUTO) 10.4 % (20.0-44.0); MEAN CORPUSCULAR HGB CONC 33 g/dl (31.0-36.0); MEAN CORPUSCULAR VOLUME 89 fL (82-100); MONOCYTES # (AUTO) 0.9 /CMM (0.1-1.30); MONOCYTES % (AUTO) 9.2 % (2.0-12.0); NEUTROPHILS # (AUTO) 7.5 /CMM (1.8-8.9); PLATELET COUNT (AUTO) 363 /CMM (150-450); RED BLOOD CELL COUNT(AUTO) 2.83 MIL/uL (4.0-5.2); WHITE BLOOD COUNT (AUTO) 9.3 K/uL (4.3-11.0)
[2019-08-16] MEDS ORDERED: FAMOTIDINE/PF INJ 20 MG/2 ML VIAL IV ONE (07:14)
[2019-08-16 07:28] LABS: CALCIUM, SERUM 7.8 mg/dL (8.5-10.1); CREATININE 0.6 mg/dL (0.6-1.3); MAGNESIUM 1.9 mg/dL (1.8-2.4); PHOSPHORUS 3.1 mg/dL (2.5-4.9); POTASSIUM 4.7 mmol/L (3.5-5.1)
[2019-08-16 08:00] VITALS: BP 147/65
[2019-08-16] MEDS: MODAFINIL 100 MG TABLET PO SCH (08:50)
[2019-08-16] MEDS: FERROUS SULFATE (325 MG) 325 MG/TAB TABLET PO SCH (08:51)
[2019-08-16] MEDS: CARVEDILOL 12.5 MG TABLET PO SCH (08:51)
[2019-08-16] MEDS: CHOLECALCIFEROL 1,000 UNIT TABLET (VIT D3) PO SCH (08:51)
[2019-08-16] MEDS: predniSONE 5 MG TABLET PO SCH (08:51)
[2019-08-16] MEDS: MULTIVIT W/MINERALS 1 TAB TABLET PO SCH (08:51)
[2019-08-16] MEDS: SUCRALFATE 1 G TABLET PO SCH (08:51)
[2019-08-16] MEDS: PANTOPRAZOLE 40 MG TABLET.DR PO SCH (08:52)
[2019-08-16] MEDS: ASPIRIN 81 MG TAB.CHEW PO SCH (08:52)
[2019-08-16] MEDS: SILVER SULFADIAZINE CREAM 25 GM TUBE TP SCH (08:54)
[2019-08-16] MEDS ORDERED: PANTOPRAZOLE 40 MG/PACK PACK GT SCH (09:25)
[2019-08-16] MEDS ORDERED: ACETAMINOPHEN 650 MG/20.3 ML UDC GT PRN (09:30)
[2019-08-16] MEDS ORDERED: MAG HYDROX/AL HYDROX/SIMETH 30 ML UDC GT PRN (09:30)
[2019-08-16] MEDS ORDERED: MAGNESIUM HYDROXIDE 30 ML UDC GT PRN (09:30)
[2019-08-16] MEDS ORDERED: HYDROCODONE/APAP 5/325MG 1 EACH TABLET GT PRN (09:30)
[2019-08-16] MEDS ORDERED: PHARMACY TO CHANGE PO MEDS TO GT/NG XX PRN (09:30)
[2019-08-16 12:00] VITALS: BP 144/67
[2019-08-16] MEDS ORDERED: GLUCERNA 1.2 1,000 ML BOTTLE GT PRN ×2 (12:00→12:30)
[2019-08-16] MEDS: SUCRALFATE 1 G TABLET GT SCH ×2 (12:24→17:06)
[2019-08-16] MEDS: DILTIAZEM HCL 30 MG TABLET GT SCH ×2 (12:24→19:00)
[2019-08-16] MEDS ORDERED: FLUC200T8 GT (13:53)
--- NOTE | 2019-08-16 15:41 | NUR ---
TOY DESIGNER NOTES CALLED [facility] REPORT GIVEN TO JEAN WEST FOR DISCHARGE.
[2019-08-16 16:00] VITALS: BP 150/64
[2019-08-16] MEDS ORDERED: predniSONE 5 MG TABLET GT SCH (17:00)
[2019-08-16] MEDS: FLUCONAZOLE IN NS,PREMIX 200 MG in PREMIX 1 EA IV SCH ×2 (17:07)
[2019-08-16] MEDS: INSULIN REGULAR, HUMAN 100 UNIT/ML 3 ML VIAL SQ PRN (17:19)
[2019-08-16 19:00] VITALS: BP 150/64
--- NOTE | 2019-08-16 19:50 | NUR ---
SALES OPERATIONS MANAGER NOTES PT D/C STABLE, FAMILY AT BEDSIDE. V/S WITHIN NORMAL LIMITS. [facility] SATURATING WELL. D/C PAPER GIVEN.
--- NOTE | 2019-08-16 19:51 | NUR ---
SERVER SYSTEMS ADMINISTRATOR NOTES PATIENT AWAITING FOR DISCHARGE. PATIENT VENT DEPENDENT. NO NEW OR ACUTE CHANGES NOTED. ALL DUE MEDICATIONS ADMINISTERED. ALL NEEDS MET. ENDORSED CARE TO PM SHIFT.
--- NOTE | 2019-08-16 19:52 | NUR ---
LOADER NOTES PATIENT IN BED RESTING NO SOB OR ACUTE DISTRESS NOTED. PATIENT VENT DEPENDENT. VENT SETTINGS NOTED. BED IN LOW LOCKED POSITION CALL LIGHT WITHIN REACH. MIDLINE INTACT PATENT. WERNER INTACT PATENT DRAINING YELLOW CLEAR URIN. WILL CONTINUE TO MONITOR. Addendum: 08/16/19 at 1953 by ISA SCHWAB RN INCORRECT TIME CHARTING NOTED FOR 0800
[2019-08-16] MEDS ORDERED: CARVEDILOL 12.5 MG TABLET GT SCH (21:00)
[2019-08-16] MEDS ORDERED: ATORVASTATIN 40 MG TABLET GT SCH (22:00)
[2019-08-17] MEDS ORDERED: ASPIRIN 81 MG TAB.CHEW GT SCH (09:00)
[2019-08-17] MEDS ORDERED: CHOLECALCIFEROL 1,000 UNIT TABLET (VIT D3) GT SCH (09:00)
[2019-08-17] MEDS ORDERED: MULTIVIT W/MINERALS 1 TAB TABLET GT SCH (09:00)
[2019-08-17] MEDS ORDERED: MODAFINIL 100 MG TABLET GT SCH (09:00)
[2019-08-17] MEDS ORDERED: FERROUS SULFATE (325 MG) 325 MG/TAB TABLET GT SCH (09:00)
== END 2019-08-16 20:26 | DRG 197 ==
LOC: ER 01:53 → TELE1 04:06
PROVIDERS: ADMIT Hospitalist; ATTEND Hospitalist
PROC: 05H633Z Insertion of Infusion Device into Left Subclavian Vein, Percutaneous Approach (ICD-10-PCS; 2019-08-12)
PROC: 5A1955Z Respiratory Ventilation, Greater than 96 Consecutive Hours (ICD-10-PCS; 2019-08-12)
PROC: 06H03DZ Insertion of Intraluminal Device into Inferior Vena Cava, Percutaneous Approach (ICD-10-PCS; principal; 2019-08-13)
DX: I82.412 Acute embolism and thrombosis of left femoral vein (principal); I21.A1 Myocardial infarction type 2; E43 Unspecified severe protein-calorie malnutrition; J90 Pleural effusion, not elsewhere classified; G93.41 Metabolic encephalopathy; Z99.11 Dependence on respirator [ventilator] status; I62.03 Nontraumatic chronic subdural hemorrhage; J96.11 Chronic respiratory failure with hypoxia; E11.649 Type 2 diabetes mellitus with hypoglycemia without coma; L97.929 Non-pressure chronic ulcer of unspecified part of left lower leg with unspecified severity; L97.919 Non-pressure chronic ulcer of unspecified part of right lower leg with unspecified severity; D68.69 Other thrombophilia; I31.3 Pericardial effusion (noninflammatory); B37.49 Other urogenital candidiasis; J98.11 Atelectasis; I10 Essential (primary) hypertension; Z93.1 Gastrostomy status; Z93.0 Tracheostomy status; Z86.718 Personal history of other venous thrombosis and embolism; Z86.711 Personal history of pulmonary embolism; Z86.73 Personal history of transient ischemic attack (TIA), and cerebral infarction without residual deficits; Z74.01 Bed confinement status; Z87.11 Personal history of peptic ulcer disease; E88.09 Other disorders of plasma-protein metabolism, not elsewhere classified; R13.10 Dysphagia, unspecified; D64.9 Anemia, unspecified; E83.42 Hypomagnesemia; E83.39 Other disorders of phosphorus metabolism; T17.990A Other foreign object in respiratory tract, part unspecified in causing asphyxiation, initial encounter; X58.XXXA Exposure to other specified factors, initial encounter; Y93.9 Activity, unspecified; Y92.129 Unspecified place in nursing home as the place of occurrence of the external cause; R00.0 Tachycardia, unspecified; E11.51 Type 2 diabetes mellitus with diabetic peripheral angiopathy without gangrene; I70.249 Atherosclerosis of native arteries of left leg with ulceration of unspecified site; I70.239 Atherosclerosis of native arteries of right leg with ulceration of unspecified site; Z79.84 Long term (current) use of oral hypoglycemic drugs; I87.2 Venous insufficiency (chronic) (peripheral); K21.9 Gastro-esophageal reflux disease without esophagitis; Z87.01 Personal history of pneumonia (recurrent); L98.8 Other specified disorders of the skin and subcutaneous tissue; Z68.27 Body mass index [BMI] 27.0-27.9, adult
CPT/HCPCS: 31720; 36415; 70450-TC; 71045-TC; 72020-TC; 74018; 80048-TC; 80061-TC; 80076-TC; 81000-TC; 82947-TC; 82962-TC; 83605-TC; 83735-TC; 84100-TC; 84484-TC; 85025-TC; 85730-TC; 87040-TC; 87081-TC; 87086-TC; 93307-TC; 93308-TC; 93970-TC; 94003-TC; 94760-TC; 94762-TC; A4216; A4217; A6253; A6403; A7526; C1769; C1880; G0378; J0690; J1450; J1644; J1815; J3475; J3490; J7030; J7042; J7512; Q9966